=== PATIENT | female | born 1955 | race Caucasian/White ===

== ENCOUNTER 2016-08-10 08:06 | Emergency (ER) | payer MEDICAID ==
[~2016-08-10] VITALS: Ht 152.4 cm; Wt 81.8 kg
[2016-08-10 08:11] VITALS: BP 116/69; PULSE 100; RESP 20; O2SAT 93
[2016-08-10 08:28] VITALS: O2SAT 94
--- NOTE | 2016-08-10 09:03 | ED.REPORT ---
HPI-URI / Cough / Cold Date of Service August 10, 2016 ED Provider: Edna Keyes MD Patient is a 61 year old female with a history of COPD who presents to the ED complaining of a productive cough with yellow sputum onset 5 days ago. Associated symptoms include headache for the past 3 days, rhinorrhea and decreased appetite. She denies fever or shortness of breath. The patient reports that she has not been using her inhaler at home. Prior to arrival to the ED, the patient took 800mg of Ibuprofen and cough drops with no relief. Nursing Notes Stated Complaint: HEADACHE/COLD Chief Complaint: General Complaint Nursing Notes Reviewed: Yes Allergies: Coded Allergies: No Known Allergies (Unverified , 08/10/16) Scheduled Prednisone (PredniSONE) 20 Mg Tablet 20 MG PO DAILY Prednisone: 40mg 5/2, 20mg 5/3 and 5/4, 10mg 5/5 and 5/6 Scheduled PRN Benzonatate (Tessalon Perle) 100 Mg Capsule 100 MG PO TID PRN PRN For Cough General Time Seen by MD: 09:02 Chief Complaint Cough, productive... (Yellow) Hx Obtained From: Patient Arrived By: Walk-in Onset Occurred: 5 days ago Symptom Duration: Since onset Associated with: Reports: Headache, Rhinorrhea Recent Healthcare: No recent doctor visit, No recent hospitalization Past Medical History Past Medical History COPD Smoking History Current Every Day Smoker Social History Drug Use: THC Other Social History: Good social support Ambulatory Status Independent Review of Systems Review of Systems Note: decreased appetite Constitutional: Denies: Fever Respiratory: Reports: Prod cough, yellow, Denies: Shortness of breath Neurologic: Reports: Headache Complete sys rev & neg: except as marked. Physical Exam Physical Exam Notes: able to talk in full sentences Initial Vital Signs Vital Signs (First) Date Time Temp Pulse Resp B/P Pulse Ox O2 Delivery O2 Flow Rate FiO2 08/10/16 08:11 36.1 100 20 116/69 93 Room Air 08/10/16 09:42 2 Initial VS: Reviewed General/Constitutional: Awake, Alert ENT: Atraumatic, Airway patent, Mucous membranes moist, Tympanic membs NL Respiratory / Chest: Atraumatic, No respiratory distress scattered wheezing coarse breath sounds mildly hoarse Head / Eyes: Atraumatic, Normocephalic, PERRL, EOMI Neck: Atraumatic, Supple, Full range of motion, No adenopathy Cardiovascular: Heart rate NL, Regular rhythm, Heart sounds NL Abdomen: Atraumatic, Soft, Non-tender Skin: Atraumatic, Color NL, No rash, Warm, Dry Neurologic: Oriented X3, Speech NL, No motor deficits, No sensory deficits Lower Extremity / Pelvis / MS: Atraumatic, Full range of motion, No edema Psychiatric: Affect NL, Mood NL Interpretation & Diagnostics X-Ray Chest Interpretation Chest Xray Interpretation: IMPRESSION: Reduced inspiratory volume, no pneumonia found. Dictated by: Alexandro Law M.D. on 08/10/2016 at 9:47 Approved by: Alexandro Law M.D. on 08/10/2016 at 9:48 View: Portable, 1 view Interpretation / Wet Read by: Interpret - Radiologist Re-Eval/Medical Decision Re-Evaluation/Progress : Time of Eval: 10:02 Re-Evaluation/Progress Note: Discussed x-ray results and plan for discharge. The patient understands and agrees to the plan for discharge. All questions were addressed. Counseled Regarding: Diagnosis, Lab results, Need for follow-up, When/why to return to ED Discharge & Departure Impression: Primary Impression: Upper respiratory infection URI type: unspecified URI Qualified Code: J06.9 - Acute upper respiratory infection, unspecified Additional Impression: COPD exacerbation Disposition: Home Discharge Condition All VS Reviewed: Yes Condition: Stable Additional Instructions: I'm so sorry you are feeling so awful. You have a viral infection that is making you cough so much. There is no evidence of pneumonia. Your COPD is also making the cough a bit worse. The severity of the cough is causing the pain in your belly muscles and giving you the headache. You will fee better with a brief course of steroids. Prednisone: 40mg 5/2, 20mg 5/3 and 5/4, 10mg 5/5 and 5/6 I will also give you some tessalon pearles to supress the cough Referrals: NOPCP (PCP) Scribe Attestation Portions of this note were transcribed by Keena Burgess. I, Dr. Keyes personally performed the history, physical exam and medical decision-making; I reviewed and confirmed the accuracy of the information in the transcribed note. Signed by: Jhony Winslow, 5/1/17 and 1003. Edna Keyes MD August 10, 2016 09:02 Bee Burgess August 10, 2016 09:16
[2016-08-10] MEDS ORDERED: predniSONE 20 mg Tablet PO ONE (09:15)
[2016-08-10] MEDS ORDERED: Albuterol-Ipratropium 3 mL Inhalation Solution NEB ONE (09:15)
[2016-08-10 09:42] VITALS: PULSE 89; RESP 16; O2SAT 95
--- NOTE | 2016-08-10 09:49 | DRSVH ---
PROCEDURE: X-RAY CHEST, TWO VIEWS ([id number]) INDICATIONS: cough TECHNIQUE: 2 views of the chest were acquired. COMPARISON: None. FINDINGS: Surgical changes and devices: None. Lungs and pleura: No pleural effusions or pneumothorax. Lungs are clear considering reduced inspira tory volume. Mediastinum: Mediastinal contours are normal. Heart size is normal. Bones and chest wall: No suspicious bony abnormalities. Soft tissues appear unremarkable. IMPRESSION: Reduced inspiratory volume, no pneumonia found. Dictated by: Alexandro Law M.D. on 08/10/2016 at 9:47 Approved by: Alexandro Law M.D. on 08/10/2016 at 9:48
[2016-08-10] MEDS ORDERED: PRE20 PO (10:01)
[2016-08-10] MEDS ORDERED: BENZ-12 PO (10:20)
== END 2016-08-10 10:30 | disposition home or self-care (01) ==
LOC: SED 08:06
DX: J06.9 Acute upper respiratory infection, unspecified (principal); J44.1 Chronic obstructive pulmonary disease with (acute) exacerbation; F17.200 Nicotine dependence, unspecified, uncomplicated
CPT/HCPCS: 71020; 94640; 94664; 94799; 96372; 99284; J1885; J7620